=== PATIENT | male | born 1950 | race Caucasian/White ===

== ENCOUNTER → 2019-08-06 14:02 | Outpatient (CLI) | payer SELFPAY ==
[2019-08-06 14:02] VITALS: BMI 22.3
--- NOTE | 2019-08-06 14:11 | RAD_ITS ---
STUDY: X-RAY - RIGHT SHOULDER REASON FOR EXAM: Pain. TECHNIQUE: 4 view(s) of the shoulder. COMPARISON: None. FINDINGS: Normal glenohumeral articulation. There is mild acromioclavicular arthrosis. Normal acromion. Normal humeral head and visualized proximal humerus. The soft tissue structures are unremarkable. Normal visualized pulmonary apex. RAD/Shoulder min 2 Views IMPRESSION: Mild acromioclavicular arthrosis. Electronically Signed: Rah Perry MD at 15:33 EDT Tel , Service support ,
== END ==
PROVIDERS: PCP Family Medicine; Referring Provider Orthopaedic Surgery; Visit Provider Orthopaedic Surgery
DX: S49.91XA Unspecified injury of right shoulder and upper arm, initial encounter (principal)
CPT/HCPCS: 73030

== ENCOUNTER → 2020-11-09 11:51 | Outpatient (CLI) | payer SELFPAY ==
[2019-08-06 14:02] VITALS: BMI 22.3
--- NOTE | 2020-11-09 12:15 | RAD_ITS ---
HISTORY: PRE-MRI ADDITIONAL HISTORY: Foreign body screening EXAMINATION/TECHNIQUE: XR Orbits Clearance FB Bilateral Number of images including paperwork: 2 COMPARISON: None FINDINGS: BONES: No acute fracture. JOINTS: No subluxation. SOFT TISSUES: No distinct foreign body. PARANASAL SINUSES: No air fluid level. Mild mucoperiosteal thickening. RAD/Orbits for Foreign Body IMPRESSION: No acute osseous abnormality. at [id number] Reported and signed by: Shirley Hoffman MD Electronically Signed: Shirley Hoffman MD at 3:59 EST Tel , Service support ,
== END ==
PROVIDERS: PCP Family Medicine
DX: Z01.818 Encounter for other preprocedural examination (principal)
CPT/HCPCS: 70030

== ENCOUNTER 2021-01-05 16:00 | Outpatient (RCR) | payer SELFPAY ==
[2019-08-06 14:02] VITALS: BMI 22.3
--- NOTE | 2020-12-02 16:25 | HP.PTEVAL_ITS ---
Patient's Visit Information TARIK BALL is a 70 year old M referred to Physical Therapy by DINO GARCIA with a diagnosis of S/P R SHLD ARTHROSCOPY 11/28/20. OA, IMPINGEMENT AND RTC STRAIN/TEAR. Date of Evaluation: 12/02/20 Physical Therapist: Haydee Taylor, PT, Cert MDT - Visit Plan Frequency: 2-3x /Week Duration: 4-6 Weeks Plan: SAP SPECIALIST INSTRUCTION TO ASSIST WITH HEP. MEASURE ACTIVE/PASSIVE R SHLD IR AND ER. POSTURE CORRECTION/STRENGTHENING, INSTRUCTION IN APPROPRIATE BODY MECHANICS AND ACTIVITY MODIFICATIONS. NICOLASA UE ROM, STRETCHING AND STRENGTHENING. HEP INSTRUCTION. PATIENT DECLINED PT 3 TIMES A WEEK ORDERED BUT AGREED TO 2X'S A WEEK. 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 Present symptoms: RIGHT SHOULDER PAIN DOWN INTO RIGHT ANTERIOR AND LATERAL ARM. PATIENT DENIES PAIN, NUMBNESS AND TINGLING BELOW THE ELBOW. VERY MILD RIGHT NECK PAIN. Present since: ABOUT 18 MONTHS AGO. Pain Scale: Worst - 8/10 Least - 0/10. Currently: 0/10 AT REST. Commenced as a result of: PLAYING [email or web address] WITH THE GRANDCHILDREN - SLID INTO THE WALL AND HIT SHOULDER. Symptoms at onset: SEVERE RIGHT SHLD PAIN. Worse: TRYING TO RAISE ARM, LYING DOWN, KEEPING ARM STILL. Better: CHANGE OF POSITION. USING BED RAIL OVER HEAD AND LONG AXIS TYPE TRACTION WITH THE HELP OF THE BED RAIL OR OTHER ARM. Disturbed sleep: YES. Previous history/Previous treatment: H/O RIGHT SHOULDER PAIN SEVERAL YEARS AGO PRIOR TO THIS ACCIDENT THAT FULLY RECOVERED WITH TIME. This episode: R SHLD X-RAY ABOUT 6 MONTHS AFTER THE ACCIDENT. CONSULT WITH DR. BRAN. PATIENT THEN JUST TRIED TO REHAB IT ON HIS OWN. ABOUT 6 WEEKS AGO HE HAD MORE IMAGING INCLUDING MRI AND EVENTUALLY DECIDED ON SX. PATIENT AND HIS REPORT THE MRI SHOWED MULTIPLE TEARS AND DR. GARCIA WAS UNABLE TO REPAIR IT. RIGHT SHLD SX AT [facility] WITH DR. GARCIA - PATIENT DESCRIBES DEBRIDEMENT/DECOMPRESSION TYPE SURGERY Saturday11/28/20. PATIENT REPORTS THE DOCTOR SAID HE DID ALL THAT HE COULD IN SURGERY TO GIVE HIM PAIN RELIEF. Gait: NORMAL. Accidents: FALL OFF OF BAILER AFTER ACCIDENT SLIDING INTO WALL. Unexplained weight loss: NO. PMH/Recent major surgery: UNREMARKABLE. OTHER: HAVING STITCHES REMOVED FROM RIGHT SHLD HAO. PATIENT REPORTS BOTH SURGEONS DID NOT RECOMMEND TOTAL SHLD REPLACEMENT. HE AND HIS REPORT PATIENT DOES NOT HAVE ANY RESTRICTIONS FOR RIGHT UE THAT THEY KNOW OF OTHER THAN NOT TRYING TO LIFT WITH IT YET. HAS BEEN TRYING TO USE HIS RIGHT UE WITH ADLS ABLE. - Objective Sitting Posture/Standing Posture: POOR. FH AND RS'S. Active Correction of posture: BETTER. NO C/O INCREASED SHOULDER PAIN WITH POSTURE CORRECTION IN CLINIC TODAY. Other Observations: INDEP GAIT AND TRANSFERS. ABLE TO INDEP'LY TAKE SHIRT OFF AND PUT IT BACK ON INCLUDING DOING THE BUTTONS. PATIENT ALSO REPORTS HE HAS STARTED USING HIS RIGHT UE TO EAT BUT DIFFICULT. Motor deficit: LUE WFL. RIGHT SHLD WEAKNESS THROUGHOUT GROSSLY 2/. R UE ELBOW, FOREARM, WRIST AND HAND AROM WFL BUT MMT NOT PERFORMED ON R UE. Sensory deficit: NICOLASA UE LIGHT TOUCH SENSATION APPEARS INTACT AND SYMMETRICAL BUT RIGHT SHOULDER AND UPPER ARM ARE TENDER/SENSATIVE TO LIGHT TOUCH. ROM deficit: L UE WFL. RIGHT UE AROM/PROM: FLEX 25 DEG/85 DEG, ABD 35 DEG/45 DEG. Postural strength: POOR. Palpation: A LOT OF ANTERIOR L SHOULDER ECCYMOSSIS INTO RIGHT BICEP AREA. ALL PORT HOLES LOOK GOOD WITHOUT ANY SIGNS OF INFECTION. TREATMENT: HEP INSTRUCTION FOR TABLE WALK AWAYS FOR GENTLE PASSIVE SHLD FLEXION AND PENDULUM EX INSTRUCTION (CW, CCW, HORIZ ABD/ADD, AND FLEX/EXT) TOLERATED ABOUT 6 TIMES A DAY. - Goals Goal 1:: DECREASE C/O RIGHT UE PAIN Goal Time Frame: 4-6 Weeks Goal 2:: IMPROVE RIGHT UE FUNCTIONAL ROM Goal Time Frame: 4-6 Weeks Goal 3:: IMPROVE RIGHT UE FUNCTIONAL STRENGTH Goal Time Frame: 4-6 Weeks Goal 4:: PATIENT WILL BE INDEP WITH A HEP FOR CONTINUED IMPROVEMENT ONCE FORMAL PHYSICAL THERAPY CONCLUDES. Goal Time Frame: 4-6 Weeks - Anticipated Interventions Patient/Client Instruction: Educate patient on: Condition, Plan of Care, Risk Factors, Benefits of Fitness Program For the Purpose of:: To improve self management Therapeutic Exercise to Include: Strength training, Body mechanics, Postural training, Flexibilty training, Neuromotor development, Passive ROM, Active ROM, Scapular Strength/Stabilization For the Purpose of:: To decrease pain, To increase ROM, To improve muscle performance and motor function, To increase tolerance to activi ty/condition/position, To improve ability of physical actions for home/community/work/leisure TENS: Yes IF ES: Yes Cryotherapy (ice pack, ice massage): Yes Thermo therapy (hot pack): Yes For the Purpose of:: To decrease pain, To decrease swelling/inflammation, To improve nutrient delivery to tissue Thank you for the opportunity to evaluate your patient. For Medicare and Medicare HMO plans, please review the plan of care and approve it. It will need to be FAXED BACK to us at [phone] for Medicare purposes. For Medicare only, by signing this I certify the plan of care. Please let me know if there are questions or concerns regarding this plan of care. Physician Signature: Date:
== END 2021-01-05 19:00 | disposition home or self-care (01) ==
LOC: PT 16:00
PROVIDERS: PCP Family Medicine
DX: M19.011 Primary osteoarthritis, right shoulder (principal); S43.421D Sprain of right rotator cuff capsule, subsequent encounter; S46.111D Strain of muscle, fascia and tendon of long head of biceps, right arm, subsequent encounter; M75.41 Impingement syndrome of right shoulder; S43.431D Superior glenoid labrum lesion of right shoulder, subsequent encounter; M94.211 Chondromalacia, right shoulder
CPT/HCPCS: 97110; 97140; 97162; 97530